=== PATIENT | male | born 1980 | race Caucasian/White ===

== ENCOUNTER 2017-08-03 02:05 | Emergency (ER) | payer OTHER ==
[~2017-08-03] VITALS: Ht 185.4 cm; Wt 90.7 kg
[~2017-08-03 02:05] MED LIST: ACYCLOVIR 800800 MG PO; AMOXICILLIN 50500 MG PO; CLONAZEPAM 1 MG1 M1; HYDROCODONE-AP1 EAC6 PO; IBUPROFEN 800800 M1 PO; LIDOCAINE VISC100 ML SWISH&SPIT; PERIDEX15 ML SWISH&SPIT
[2017-08-03 02:34] LABS: URINE BILIRUBIN NEGATIVE (Negative); URINE BLOOD NEGATIVE (Negative); URINE CLARITY CLEAR; URINE COLOR YELLOW; URINE GLUCOSE-RANDOM NEGATIVE (Negative); URINE KETONES NEGATIVE (Negative); URINE LEUKOCYTES-REFLEX NEGATIVE (Negative); URINE NITRITE-REFLEX NEGATIVE (Negative); URINE PROTEIN NEGATIVE (Negative); URINE SPECIFIC GRAVITY >= 1.030 (1.005-1.030); URINE UROBILINOGEN 0.2 E.U./dl (0.2-1.0)
[2017-08-03 02:39] LABS: ABSOLUTE BASOPHILS 0.1 thou/uL (0.0-0.2); ABSOLUTE EOSINOPHILS 0.2 thou/uL (0.0-0.7); ABSOLUTE MONOCYTES 0.8 thou/uL (0.0-1.2); ABSOLUTE NEUTROPHILS 4.9 thou/uL (1.6-8.1); BASOPHILS 0.9 %; EOSINOPHILS 2.1 %; HEMATOCRIT 47.4 % (42.0-52.0); HEMOGLOBIN 16.2 gm/dL (14.0-18.0); LYMPHOCYTES 24.9 %; MCH 29.2 pg (26.0-34.0); MCHC 34.3 g/dL (28.0-37.0); MCV 85.1 fL (80.0-100.0); MONOCYTES 10.1 %; MPV 8.1 fl. (7.2-11.1); NUCLEATED RBCS 0 /100WBC; PLATELET COUNT* 268 thou/uL (150-400); RBC 5.57 mil/uL (4.50-6.00); RDW-CV 14.7 % (10.5-14.5)
[2017-08-03 02:45] LABS: CALCIUM 8.6 mg/dL (8.5-10.1); CREATININE 1.1 mg/dL (0.6-1.3); POTASSIUM 4.1 mmol/L (3.5-5.1)
[2017-08-03 02:50] LABS: ALBUMIN 3.6 g/dL (3.4-5.0); TOTAL BILIRUBIN 0.7 mg/dL (<0.1-1.0); TOTAL PROTEIN 6.8 g/dL (6.4-8.2)
[2017-08-03 05:40] VITALS: BP 109/67
[2017-08-03 14:10] LABS: HBsAG-EMPLOYEE EXPOSURE Negative (Negative)
== END 2017-08-03 05:40 | disposition home or self-care (01) ==
LOC: M.ERS 02:05
PROVIDERS: Family Medicine
DX: R10.11 Right upper quadrant pain (principal); F41.9 Anxiety disorder, unspecified; F17.210 Nicotine dependence, cigarettes, uncomplicated; Z88.1 Allergy status to other antibiotic agents

== ENCOUNTER 2017-09-25 00:44 | Emergency (ER) | payer OTHER ==
[~2017-09-25] VITALS: Ht 185.4 cm; Wt 93.0 kg
[2017-09-25] MEDS ORDERED: BACTRIM DS TAB1 EACH PO (02:09)
[2017-09-25] MEDS ORDERED: KEFLEX500 M1 PO (02:09)
[2017-09-25] MEDS ORDERED: HYDROCODONE-AP1 EAC6 PO (02:09)
[2017-09-25 02:37] VITALS: BP 101/66
== END 2017-09-25 02:30 | disposition home or self-care (01) ==
LOC: M.ERS 00:44
DX: S80.11XA Contusion of right lower leg, initial encounter (principal); L02.415 Cutaneous abscess of right lower limb; F41.9 Anxiety disorder, unspecified; F17.210 Nicotine dependence, cigarettes, uncomplicated; Z88.1 Allergy status to other antibiotic agents; W22.8XXA Striking against or struck by other objects, initial encounter; Y93.89 Activity, other specified; Y92.89 Other specified places as the place of occurrence of the external cause; Y99.8 Other external cause status

== ENCOUNTER 2017-10-22 07:17 | Emergency (ER) | payer OTHER ==
[~2017-10-22] VITALS: Ht 185.4 cm; Wt 90.7 kg
[~2017-10-22 07:17] MED LIST changes: +BACTRIM DS TAB1 EACH PO; +KEFLEX500 M1 PO
[2017-10-22] MEDS ORDERED: FLEXERIL PO (08:00)
[2017-10-22] MEDS ORDERED: IBUPROFEN 800800 M1 PO (08:00)
[2017-10-22 08:14] VITALS: BP 113/67
== END 2017-10-22 08:15 | disposition home or self-care (01) ==
LOC: M.ERS 07:17
DX: S46.811A Strain of other muscles, fascia and tendons at shoulder and upper arm level, right arm, initial encounter (principal); F41.9 Anxiety disorder, unspecified; F17.210 Nicotine dependence, cigarettes, uncomplicated; Z88.1 Allergy status to other antibiotic agents; W01.198A Fall on same level from slipping, tripping and stumbling with subsequent striking against other object, initial encounter; Y93.89 Activity, other specified; Y92.89 Other specified places as the place of occurrence of the external cause; Y99.8 Other external cause status